=== PATIENT | male | born 1980 | race Caucasian/White ===

== ENCOUNTER → 2018-03-05 | Outpatient (CLI) | payer OTHER | LOC: CAT 12:02 | DX: Z13.6 Encounter for screening for cardiovascular disorders (principal); E78.00 Pure hypercholesterolemia, unspecified ==

== ENCOUNTER → 2019-05-01 | Outpatient (CLI) | payer OTHER | LOC: ULTRA 16:00 | DX: R10.11 Right upper quadrant pain (principal) ==